=== PATIENT | male | born 1970 | race Caucasian/White ===

== ENCOUNTER 2020-08-06 06:54 | Inpatient (IN) ==
[~2020-08-06 06:54] MED LIST: ACETAMINOPHEN 500 MG TABLET PO SCH; CELECOXIB 200 MG CAPSULE PO SCH; PREGABALIN 75 MG CAPSULE PO SCH; ceFAZolin 3 GM in DEXTROSE 5% IN WATER 50 ML IV SCH; oxyCODONE 10 MG TAB.ER.12H PO SCH
[2020-08-06] MEDS ORDERED: ROPIVACAINE HCL/PF 20 ML VIAL IJ ONE (09:19)
[2020-08-06] MEDS ORDERED: TRANEXAMIC ACID 1,000 MG/10 ML VIAL IV ONE ×2 (09:19→12:28)
[2020-08-06] MEDS ORDERED: HYDROmorphone 1 MG/ML SYRINGE ONE (09:19)
[2020-08-06] MEDS ORDERED: PROPOFOL 200 MG/20 ML VIAL IV ONE (09:19)
[2020-08-06] MEDS ORDERED: DEXAMETHASONE 10 MG/ML VIAL ONE (09:19)
[2020-08-06] MEDS ORDERED: LIDOCAINE HCL/PF 100 MG/5 ML SYRINGE IV ONE (09:19)
[2020-08-06] MEDS ORDERED: fentaNYL 100 MCG/2 ML VIAL IV ONE (09:19)
[2020-08-06] MEDS ORDERED: ONDANSETRON 4 MG/2 ML VIAL ONE (09:19)
[2020-08-06] MEDS ORDERED: KETAMINE 100 MG/ML ML ONE (09:19)
[2020-08-06] MEDS: GENTAMICIN SULFATE 800 MG/20 ML VIAL IR ONE ×2 (09:48→11:10)
[2020-08-06] MEDS ORDERED: TOBRAMYCIN SULFATE 1.2 GM VIAL TOPICAL ONE (11:10)
[2020-08-06] MEDS ORDERED: 0.9 % SODIUM CHLORIDE 9 ML, KETOROLAC 30 MG, ROPIVACAINE HCL/PF 49.5 ML, EPINEPHrine 0.... IJ ONE (11:14)
[2020-08-06] MEDS ORDERED: PROMETHAZINE 25 MG/ML VIAL IV PRN (11:56)
[2020-08-06] MEDS ORDERED: BENZOCAINE/MENTHOL 1 LOZENGE PO PRN ×2 (11:56→12:28)
[2020-08-06] MEDS ORDERED: NALOXONE HCL 0.4 MG/ML VIAL IV PRN (11:56)
[2020-08-06] MEDS ORDERED: ACETAMINOPHEN 1,000 MG/100 ML BAG IV ONE (11:56)
[2020-08-06] MEDS ORDERED: diphenhydrAMINE 50 MG/ML VIAL IV PRN (11:56)
[2020-08-06] MEDS ORDERED: HYDROmorphone 0.5 MG/0.5 ML SYRINGE IV PRN (11:56)
[2020-08-06] MEDS ORDERED: IPRATROPIUM/ALBUTEROL 3 ML AMPUL.NEB NEB PRN (11:56)
[2020-08-06] MEDS ORDERED: ONDANSETRON 4 MG/2 ML VIAL IV PRN ×2 (11:56→12:28)
[2020-08-06] MEDS ORDERED: LACTATED RINGERS 250 ML IV PRN (11:56)
[2020-08-06] MEDS ORDERED: LACTATED RINGERS 1,000 ML IV SCH (12:00)
[2020-08-06] MEDS: fentaNYL 100 MCG/2 ML VIAL IV PRN ×8 (12:20→13:02)
[2020-08-06] MEDS: MEPERIDINE 25 MG/ML SYRINGE IV PRN ×2 (12:24→12:29)
[2020-08-06] MEDS ORDERED: ONDANSETRON 4 MG ODT TABLET SL PRN (12:28)
[2020-08-06] MEDS ORDERED: MAGNESIUM HYDROXIDE 30 ML ORAL.SUSP PO PRN (12:28)
[2020-08-06] MEDS ORDERED: ACETAMINOPHEN 325 MG TABLET PO PRN (12:28)
[2020-08-06] MEDS ORDERED: BISACODYL 10 MG SUPP.RECT PR PRN (12:28)
[2020-08-06] MEDS ORDERED: FLEETS ADULT ENEMA PR PRN (12:28)
[2020-08-06] MEDS ORDERED: POLYETHYLENE GLYCOL 3350 17 GM PACKET PO PRN (12:28)
--- NOTE | 2020-08-06 12:28 | Brief Operative Note ---
Brief Operative Note Date of procedure: 08/06/20 Pre-op diagnosis: Right knee septic Post-op diagnosis: same Procedure: Right tka revision all components Grafts/Implants: Yes Anesthesia: GETA Findings: severe septic knee Complications: none Complications Description: none Surgeon: Brian Mccarthy Manufacturing Design Engineer: Manan Benites Estimated blood loss (cc): 300 Tourniquet Time (Minutes): 100 Specimens Removed/Pathology: other Condition: stable Disposition: PACU
[2020-08-06] MEDS ORDERED: traMADol 50 MG TABLET PO PRN (12:34)
[2020-08-06] MEDS ORDERED: SILDENAFIL 50 MG PO PRN (12:34)
[2020-08-06] MEDS ORDERED: TRANEXAMIC ACID 1,000 MG/10 ML VIAL IV SCH (12:45)
[2020-08-06] MEDS ORDERED: METHOCARBAMOL 1,000 MG/10 ML VIAL ONE (12:53)
[2020-08-06] MEDS ORDERED: VANCOMYCIN 1,500 MG in 0.9 % SODIUM CHLORIDE 500 ML IV ONE (13:00)
[2020-08-06] MEDS: 0.45 % SODIUM CHLORIDE 1,000 ML IV SCH (13:23)
[2020-08-06] MEDS: HYDROcodone/APAP 10/325MG TABLET PO PRN ×3 (13:29→23:42)
[2020-08-06] MEDS: 0.9 % SODIUM CHLORIDE 10 ML SYRINGE IV SCH ×2 (13:50→21:26)
[2020-08-06] MEDS ORDERED: VANCOMYCIN PER PHARMACY IV SCH (14:24)
[2020-08-06] MEDS ORDERED: VANCOMYCIN 500 MG in 0.9 % SODIUM CHLORIDE 100 ML IV ONE (14:30)
--- NOTE | 2020-08-06 14:38 | XRay Report ---
HISTORY: Postop right knee arthroplasty FINDINGS: There is a well positioned total knee prosthesis. There are multiple clusters of soft tissue calcifications along both medial and lateral borders of the femoral tibial joint compartment. There are also soft tissue calcification seen on the lateral view superimposed over the patellofemoral joint. Preoperative x-rays are not available for comparison. There is no fracture. IMPRESSION: Well-positioned knee prosthesis Multiple periarticular soft tissue calcifications Interpreted and Authenticated by: Tahir Benton 08/06/20
[2020-08-06 15:00] LABS: POC Blood Urea Nitrogen 10 mg/dL (6-20); POC CO2 24 mmol/L (22-30); POC Chloride 104 mEq/L (96-108); POC Creatinine 0.7 mg/dL (0.6-1.2); POC Glucose, Random 139 mg/dL (70-105); POC Hematocrit 39 % (41-55); POC Potassium 3.8 mEql/L (3.3-5.1); POC Sodium 141 mEq/L (133-145)
[2020-08-06] MEDS: KETOROLAC 15 MG/ML VIAL IV SCH ×2 (17:24→23:42)
[2020-08-06] MEDS ORDERED: SENNOSIDES 1 TABLET PO SCH (21:00)
[2020-08-06] MEDS ORDERED: ATORVASTATIN 40 MG TABLET PO SCH (21:00)
[2020-08-06] MEDS ORDERED: TEMAZEPAM 15 MG CAPSULE PO PRN (21:00)
[2020-08-06] MEDS: ceFAZolin 1 GM VIAL IV SCH (21:24)
[2020-08-06] MEDS: DOCUSATE SODIUM 100 MG CAPSULE PO SCH (21:25)
[2020-08-06] MEDS: ASPIRIN 81 MG TAB.CHEW PO SCH (21:25)
[2020-08-06] MEDS: VANCOMYCIN 1,500 MG in 0.9 % SODIUM CHLORIDE 500 ML IV SCH (23:43)
[2020-08-07] MEDS: 0.45 % SODIUM CHLORIDE 1,000 ML IV SCH ×2 (01:05→12:27)
[2020-08-07] MEDS: HYDROcodone/APAP 10/325MG TABLET PO PRN ×3 (05:09→13:27)
[2020-08-07] MEDS: ceFAZolin 1 GM VIAL IV SCH ×2 (05:09→12:50)
[2020-08-07] MEDS: KETOROLAC 15 MG/ML VIAL IV SCH (06:35)
[2020-08-07] MEDS: 0.9 % SODIUM CHLORIDE 10 ML SYRINGE IV SCH (06:35)
[2020-08-07] MEDS ORDERED: LEVOTHYROXINE 100 MCG TABLET PO SCH (07:30)
[2020-08-07] MEDS: ASPIRIN 81 MG TAB.CHEW PO SCH (07:38)
[2020-08-07] MEDS: DOCUSATE SODIUM 100 MG CAPSULE PO SCH (07:38)
[2020-08-07] MEDS ORDERED: RIVAROXABAN 10 MG PO SCH (09:00)
[2020-08-07] MEDS: VANCOMYCIN 1,500 MG in 0.9 % SODIUM CHLORIDE 500 ML IV SCH (09:52)
--- NOTE | 2020-08-07 10:54 | Orthopedic Progress Note ---
SUBJECTIVE Subjective Patient information: Note initiated : 08/07/20 at 10:52 am Service Date, if different from initiated Date: [] Patient: Manan Mccurdy 49 y/o M admitted on 08/06/20 for Right Total Knee Revision First Stage Rev Right To. Chief Complaint: [no nausea nor vomiting and only complains of thigh pain] Constitutional Vitals: Vital Signs Temp Pulse Resp BP Pulse Ox 97.5 F 65 18 96/54 97 08/07/20 06:58 08/07/20 06:58 08/07/20 06:58 08/07/20 06:58 08/07/20 07:46 Period Temp Pulse Resp BP Sys/James Pulse Ox Last 24 Hr 96.9 F-98.4 F 65-98 15-19 96-162/54-96 94-100 Intake and Output 08/06/20 08/07/20 08/07/20 21:59 05:59 13:59 Intake Total 1863 500 480 Output Total 775 Balance 1863 -275 480 Weight 347 lb 11.2 oz Intake & Output: Intake & Output 08/06/20 08/07/20 08/07/20 21:59 05:59 13:59 Intake Total 1863 500 480 Output Total 775 Balance 1863 -275 480 Weight 347 lb 11.2 oz Intake: IV 1263 500 Sodium Chloride 0.45% 1,000 ml 663 @ 100 mls/hr IV .Q10H [facility] Rx#: [id number] Vancomycin 500 mg In Sodium 100 Chloride 0.9% 100 ml @ 100 mls/ hr IV ONCE ONE Rx#:[id number] Vancomycin 1,500 mg In Sodium 500 500 Chloride 0.9% 500 ml @ 333.3 mls/hr IV Q12H [facility] Rx#: [id number] Oral 600 480 Output: Void Amount 775 Other: Meal Dinner Breakfast Percent of Meal Consumed 100% 100% Feeding Ability Independent Independent Urine Appearance Clear Clear Urine Color Pale Bright Yellow Urine Odor Normal # Voids 1 1 Head Head exam: Present normal inspection and normocephalic ENT ENT exam: Present mucous membranes moist Extremities Exam Extremities exam: Present calf tenderness, joint swelling, normal capillary refill, Eli's sign (negative) and Foot pink and warm Skin Skin exam: Present intact and warm OBJ DATA Labs CBC & Chem 7: 08/07/20 05:30 Labs: Abnormal Lab Results 08/07/20 08/06/20 05:30 14:40 Hct 32.1 L POC Hct 39 L POC Glucose 139 H POC WB Ioniz Calcium 1.10 L Meds: Medications Acetaminophen (Tylenol) 650 mg PO Q6HP PRN; Protocol PRN Reason: Per Pain Protocol/Fever > 101 Hydrocodone Bitart/Acetaminophen ([place] 10/325mg) 1 - 2 tab PO Q4HP PRN; Protocol PRN Reason: Per Pain Protocol Last Admin: 08/07/20 09:38 Dose: 2 tab Documented by: Aspirin (Aspirin) 81 mg PO BID [facility] Last Admin: 08/07/20 07:38 Dose: 81 mg Documented by: Atorvastatin Calcium (Lipitor) 40 mg PO [id number]@2100 [facility] Last Admin: 08/06/20 21:25 Dose: 40 mg Documented by: Bisacodyl (Dulcolax) 10 mg AL Q2-3DAYS PRN PRN Reason: Constipation Cefazolin Sodium (Ancef) 2 gm IV Q8H [facility]; Protocol Last Admin: 08/07/20 05:09 Dose: 2 gm Documented by: Docusate Sodium (Colace) 100 mg PO BID [facility] Last Admin: 08/07/20 07:38 Dose: 100 mg Documented by: Sodium Chloride (Sodium Chloride 0.45%) 1,000 mls @ 100 mls/hr IV .Q10H [facility] Last Admin: 08/07/20 01:05 Dose: Not Given Documented by: Vancomycin HCl 1,500 mg/ (Sodium Chloride) 500 mls @ 333.3 mls/hr IV Q12H [facility] Last Admin: 08/07/20 09:52 Dose: 333.3 mls/hr Documented by: Ketorolac Tromethamine (Toradol) 15 mg IV Q6 [facility] Stop: 08/08/20 12:01 Last Admin: 08/07/20 06:35 Dose: 15 mg Documented by: Levothyroxine Sodium (Synthroid) 100 mcg PO ACB [facility] Last Admin: 08/07/20 07:38 Dose: 100 mcg Documented by: Magnesium Hydroxide (Milk Of Magnesia) 30 ml PO BIDP PRN PRN Reason: Constipation Ondansetron HCl (Zofran) 4 mg IV Q4HP PRN PRN Reason: Nausea And Vomiting Ondansetron HCl (Zofran Odt) 4 mg SL Q4HP PRN PRN Reason: Nausea And Vomiting Polyethylene Glycol (Miralax) 17 gm PO DAILYP PRN PRN Reason: Constipation Senna (Senokot) 2 tab PO HS [facility] Last Admin: 08/06/20 21:25 Dose: 2 tab Documented by: Sodium Biphosphate/Sodium Phosphate (Fleets Adult) 1 dose AL Q3-4DAYS PRN PRN Reason: Constipation Sodium Chloride (Saline Flush) 10 ml IV Q8 [facility] Last Admin: 08/07/20 06:35 Dose: 10 ml Documented by: Temazepam (Restoril) 15 mg PO HSP PRN PRN Reason: Insomnia Throat Lozenges (Cepacol) 1 lozenge PO PRN PRN PRN Reason: Sore Throat Tramadol HCl (Ultram) 50 mg PO QIDP PRN; Protocol PRN Reason: Pain Vancomycin HCl (Vancomycin Per Pharmacy) 1 order IV UD [facility]; Protocol A/P Time Spent With Patient Time: Total time spent is greater than 50% in coordination of care (as marco antonio erazo) at patient's floor/unit and/or counseling patient:
--- NOTE | 2020-08-07 14:39 | XRay Report ---
HISTORY: PICC line insertion FINDINGS: A PICC line has been inserted through the left arm with the tip in the superior vena cava. There is no pneumothorax, pleural effusion or widening of the mediastinum. The lungs are clear. The heart size is normal. IMPRESSION: Normal chest following insertion of a left-sided PICC line Surgical nursing was called with the results Interpreted and Authenticated by: Tahir Benton 08/07/20
--- NOTE | 2020-08-09 08:56 | Operative Note ---
DATE OF OPERATION: 08/06/2020 PREOPERATIVE DIAGNOSIS: Right septic knee, longstanding. POSTOPERATIVE DIAGNOSIS: Right septic knee, longstanding. PROCEDURE: Right total knee arthroplasty revision of all components. SURGEON: Brian Mccarthy M.D. GLOBAL CMO: Donnell Benites PA-C. The PA's assistance was required for the safe and efficient completion of the entire case. This provider's expertise and technical skill were required throughout the case. The PA assisted with preoperative coordination, intraoperative retraction, wound closure, dressing and splint application, as well as postoperative documentation and care coordination. ANESTHESIA: General LMA anesthesia. COMPLICATIONS: None. TOURNIQUET TIME: 100 minutes. ESTIMATED BLOOD LOSS: 300 mL. BLOOD PRODUCTS GIVEN: None. DESCRIPTION OF PROCEDURE: The patient was brought to the operating room, put to sleep with general LMA anesthesia. Once asleep, the patient had the right leg sterilely prepped and draped in the usual sterile fashion. Once this was done, the leg was exsanguinated and tourniquet inflated to 300 pounds of pressure. Incision through the prior incision was made. The lateral capsule had been released which was quite amazing. This allowed a lot of infection to escape. There had been a prior somewhat of a repair. We then incised through the medial capsule with a midvastus approach, removing all the implants. This included the femoral component, the tibial component, the poly liner, as well as the patellar component. Excess cement was removed. We recut the tibia to realign the implant. We externally rotated the tibial baseplate, size 7 tibia, size 7 femur, a 19 mm poly insert. We irrigated thoroughly and then resurfaced the patella with a 39 mm patella after removing the old component. We irrigated once more. We cemented into place the 7 tibia, the 7 femur, the 19 mm poly insert. Excess cement was removed. We then placed a 39 mm patellar button. We deflated the tourniquet at 100 minutes. We then used tranexamic acid, both IV and within the wound to control any bleeding. Once this was done, we then closed the midvastus approach with #1 Stratafix x4. We closed the lateral capsule that had been released. We closed the medial midvastus approach. We took the knee through range of motion once all closed. This seemed to fit very well. We closed the skin with 2-0 Monocryl and then annamarie. Sterile bandage was applied. The patient tolerated this well without complication. RBH:huy Job ID: [id number] Doc ID: [id number] Brian Mccarthy MD
--- NOTE | 2020-08-09 09:28 | Operative Note ---
DATE OF OPERATION: 08/06/2020 PREOPERATIVE DIAGNOSIS: Total knee arthroplasty by Dr. Tran. This has been operated on now five times without resolution. POSTOPERATIVE DIAGNOSIS: Total knee arthroplasty by Dr. Tran. This has been operated on now five times without resolution. PROCEDURE: Septic knee revision of all components using Michael components. SURGEON: Brian Mccarthy M.D. PATHOLOGIST: Donnell Benites PA-C. The PA's assistance was required for the safe and efficient completion of the entire case. This provider's expertise and technical skill were required throughout the case. The PA assisted with preoperative coordination, intraoperative retraction, wound closure, dressing and splint application, as well as postoperative documentation and care coordination. ANESTHESIA: General LMA anesthesia. ESTIMATED BLOOD LOSS: 300 mL. TOURNIQUET TIME: Tourniquet pressure at 300 pounds of pressure for 100 minutes. MEDICATIONS: Antibiotic-impregnated cement was used with tobramycin, as well as tranexamic acid and preoperative antibiotics. Cultures were sent. DESCRIPTION OF PROCEDURE: The patient was brought to the operating room, put to sleep with general LMA anesthesia. Once asleep, the patient had the right leg sterilely prepped and draped in the usual sterile fashion. A timeout was performed confirming this as the operative site by initials, consent form, and x-rays. A midline incision was made. There was a large infection that was expressed through the lateral release site where the patient had a lateral release. This was debrided. We then made a midvastus approach to the knee and exposed the joint. All the components were removed. Both the femoral, tibia, the tibial baseplate, and the poly on the patella were all removed. Once this was done, excess cement was removed. We then recut the tibia to length and then we irrigated thoroughly. Once done, we were able to then place a size 7 tibial baseplate, setting greater external rotation. The femoral component was a size 7 and a 19 mm poly insert was placed. Excess cement was removed. We resurfaced the patella with a 39 mm patellar button after removing the old patella. All these were cemented into place with tobramycin-impregnated cement, 1 gram. Patient tolerated this well. We irrigated thoroughly and then we deflated the tourniquet. Blood loss was about 300 mL. Tranexamic acid was then locally placed within the joint. IV form of tranexamic acid and preoperative antibiotics had been given. We closed the midvastus approach with #1 Stratafix x4. This included the lateral release site from a prior surgery that was closed. We closed the skin with Stratafix, Monocryl and annamarie. The patient tolerated this well. Sterile bandage was applied. RBH:huy Job ID: [id number] Doc ID: [id number] Brian Mccarthy MD
--- NOTE | 2020-08-09 14:42 | Discharge Summary ---
Discharge Provider Provider Patient information: Note initiated : 08/09/20 at 2:37 pm Service Date, if different from initiated Date: [] Patient: Manan Mccurdy 49 y/o M admitted on 08/06/20 for Right Total Knee Revision First Stage Rev Right To. Chief Complaint: Right tka revision for infection[] Date of admission: 08/06/20 06:54 Discharge date: 08/07/20 Primary care physician: Harry Mattson MD COURSE Hospital Course Hospital course: uncomplicated Discharge diagnosis: septic right knee Time Spent with Patient Time attestation: Total time spent providing and/or coordinating discharge services: Time spent: Greater than 30 minutes Physical Examination Exam Incision healing: Yes Incision draining: No Incision red: No Incision swollen: Yes Incision inflamed: No Clean and dry: Yes Weight bearing status: full Range of motion: 0-65 Discharge Instructions - TKA Patient Instructions Total Knee Protocol: For Total Knee: Start ROM CARMEN with stationary bike or rocking chair. Work on gaining full extension of knee. Posterior dislocation precautions provided. Hip abductor strengthening and gait training instructions provided. Apply Cryocuff as instructed. Discharge Plan Patient/Caregiver Discharge Instructions Activity: ambulate only with your walker Diet: Regular Diet Instructions: Hydrocodone/Acetaminophen (By mouth), Cefazolin (By injection), Vancomycin (By mouth), How to Care for Your PICC (Peripherally Inserted Central Catheter) (DC), Revision Total Joint Arthroplasty (DC) Activity Restrictions/Additional Instructions: Resume home diet as tolerated Activity as tolerated and as per physical therapy Follow up as needed with Harry Mattson. Contact him at [phone] Follow up with [facility]. Contact the office on Wednesday 08/09 to schedule. [phone] Return to [facility] twice daily for antibiotic infusions at 9:00 am and 9:00 pm. First outpatient dose is 1/2 at 9:00 pm Check in tonight at the admissions department Your will have outpatient vancomycin and cefazolin at 9:00 am and 9:00 pm. Your will continue to administer your midday dose daily at 3:00 pm. Take all medication as directed. Your prescriptions are with your discharge paperwork. 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 Pain medication can cause constipation; take an over the counter stool softener and/or laxative while on pain medication Return to ER for fever, chills, uncontrolled pain, unable to go to the bathroom, nausea and/or vomiting, swelling, redness, signs of infection, shortness of breath, chest pain, return of symptoms, or other acute symptom This discharge packet is provided to you to help keep you informed about your care. We want to ensure you get everything you need when you go home. You will also be receiving a call from us in a few days to follow up with you and see how you are doing since your discharge. This gives us a chance to listen to any concerns you maybe experiencing since you were discharged or any additional needs you may have, as well as providing us feedback on your care experience. We strive to always provide excellent care and thank you for your feedback and for choosing [facility]. Prescriptions: New cefazolin 1 gram Recon Soln 2 g IV Q8H 30 Days RF: 0 hydrocodone-acetaminophen 10-325 mg Tablet 1 - 2 tab PO Q4HP PRN (Reason: Per Pain Protocol) Qty: 60 RF: 0 Vancomycin Per Pharmacy 2 g .Route BID Qty: 60 RF: 1 sodium chloride 0.9 % (flush) [BD Pre-Filled Normal Saline] Syringe 10 ml IV QDAY Qty: 60 RF: 0 Continued tramadol 50 mg tablet 50 mg PO QIDP PRN (Reason: Pain) RF: 0 levothyroxine [Synthroid] 100 mcg tablet 100 mcg PO QDAY RF: 0 sildenafil 50 mg Tablet 50 mg PO QDAY PRN (Reason: Erectile Dysfunction) RF: 0 ezetimibe 10 mg Tablet 10 mg PO QDAY RF: 0 rosuvastatin 20 mg Tablet 20 mg PO 3XW RF: 0 Discontinued Xarelto 10 mg tablet 10 mg PO QDAY RF: 0 hydrocodone-acetaminophen 5-325 mg Tablet 1 tab PO Q4H PRN (Reason: Pain) RF: 0 Follow Up Plan Follow up with: Brian Mccarthy MD [Physician] - Harry Mattson MD [Primary Care Provider] - Patient Disposition: Home, Self-Care Care Plan Goals: cure knee infection Hospital Course: uncomplicated Health Concerns: infection Assessment: dc home Plan of Treatment: home iv antibiotics Prognosis: Good Rehab Potential: Good I certify that the patient requires SNF services: No Overall status at discharge: patient is back to baseline Discharge Date/Time: 08/07/20 13:55 Discharge Orders: Discharge Order (Routine); Ordered 08/07/20 Ordered By: Brian Mccarthy Pending Pending Pending: Diet Regular Diet Start SunAug 06 Lunch Shift Summary 08/07/20 04:02 Shift Summary by Elyssa Rosenbaum Patient alert and oriented x4. Slept off and on this shift. Medicated with Hydrocodone 2 tabsx2 for right knee pain 7/10 with moderate effect. IV on right hand saline locked. Up using FWW, gait belt and standby assist. Ambulated in hallway 300 ft. Voids to the bathroom. Used the CPM machine 0-40 degrees for 3 hours. For PICC line today 0900-0930H. For 6 weeks of IV ABOs. On Zosyn and Vancomycin. Also given scheduled Toradol this shift. Right knee dressing CDI. CMS intact. Ice pack applied. VSS. Initialized on 08/07/20 04:02 - END OF NOTE
== END 2020-08-07 13:55 | disposition home or self-care (01) | DRG 467 ==
LOC: MEDSUR 06:54
PROVIDERS: ADMIT Orthopaedic Surgery; ATTEND Orthopaedic Surgery

== ENCOUNTER 2024-09-29 05:30 | Inpatient (IN) ==
[2024-09-10 10:00] LABS: Basophils # (Auto) 0.03 K/mcL (0.00-0.30); Basophils % (Auto) 0.3 % (0.0-2.0); Eosinophils # (Auto) 0.09 K/mcL (0.00-0.70); Eosinophils % (Auto) 0.8 % (0.0-7.0); Hematocrit 44.9 % (40.1-51.0); Hemoglobin 15.2 g/dL (13.7-17.5); Lymphocytes # (Auto) 1.01 K/mcL (1.50-4.80); Lymphocytes % (Auto) 8.8 % (15.5-49.0); Mean Cell Volume 93.2 fL (80.0-100.0); Mean Corpuscular HGB Conc 33.9 g/dL (31.0-36.0); Mean Platelet Volume 9.2 fL (8.8-12.5); Monocytes # (Auto) 0.74 K/mcL (0.10-0.90); Monocytes % (Auto) 6.4 % (1.0-12.0); Neutrophils % (Auto) 83.5 % (38.0-78.0); Platelet Count 201 K/mcL (140-440); RBC 4.82 M/mcL (4.63-6.08); Red Cell Distribution Width 12.5 % (11.5-14.5); WBC 11.5 K/mcL (4.5-11.0)
[2024-09-10 10:12] LABS: Appearance,Urine Clear (Clear); Bacteria,Urine 0 /hpf (0); Bilirubin,Urine Negative (Negative); Color,Urine Yellow; Glucose,Urine (UA) Negative (Negative); Ketones,Urine Negative (Negative); Leukocyte Esterase,Urine Negative /uL (Negative); Mucus,Urine Few /hpf; Nitrate,Urine Negative (Negative); PH,Urine 5.5 (5.0-9.0); Protein,Urine Negative (Negative); Urine Blood Moderate ery/mcL (Negative); Urine RBC 12 /hpf (0-3); Urine Squamous Epithelial Cell < 1 /hpf (0-4); Urine Transitional Epi Cells < 1 /hpf (0-2); Urine WBC < 1 /hpf (0-4); Urobilinogen,Urine Normal
[2024-09-10 10:27] LABS: INR 1.7 (0.9-1.1); Prothrombin Time 20.6 sec (11.9-14.5)
[2024-09-10 10:33] LABS: ALT/SGPT 25 U/L (<40); AST/SGOT 39 U/L (<40); Albumin 4.2 gm/dL (3.2-5.2); Albumin/Globulin Ratio 1.3 (1.0-2.3); Alkaline Phosphatase 53 U/L (39-117); Bilirubin,Total 0.5 mg/dL (0.1-1.0); Blood Urea Nitrogen 11 mg/dL (6-20); Calcium 9.1 mg/dL (8.6-10.4); Carbon Dioxide 22 mmol/L (22-30); Chloride 105 mmol/L (96-108); Globulin 3.2 gm/dL (2.2-3.7); Glomerular Filtration Rate 102; Glucose 114 mg/dL (70-105); Potassium 3.9 mmol/L (3.3-5.1); Sodium 139 mmol/L (133-145)
[2024-09-10 11:28] LABS: Estimated Average Glucose(eAG) 108 mg/dL; Hemoglobin A1C 5.4 % Hgb (4.0-6.0)
[2024-09-29] MEDS: oxyCODONE 10 MG TAB.ER.12H PO SCH (07:24)
[2024-09-29] MEDS: ACETAMINOPHEN 500 MG TABLET PO SCH (07:25)
[2024-09-29] MEDS: CELECOXIB 200 MG CAPSULE PO SCH (07:25)
[2024-09-29] MEDS: PREGABALIN 75 MG CAPSULE PO SCH (07:25)
[2024-09-29] MEDS ORDERED: ONDANSETRON 4 MG/2 ML VIAL ONE (07:31)
[2024-09-29] MEDS ORDERED: PHENYLephrine 1 MG/10 ML SYRINGE (ANEST) ONE (07:31)
[2024-09-29] MEDS ORDERED: GLYCOPYRROLATE 0.2 MG/ML VIAL IV ONE (07:31)
[2024-09-29] MEDS ORDERED: LIDOCAINE 2% PF 5 ML VIAL ONE (07:31)
[2024-09-29] MEDS ORDERED: METOCLOPRAMIDE 10 MG/2 ML VIAL ONE (07:31)
[2024-09-29] MEDS ORDERED: ePHEDrine 50 MG/ML AMPUL IV ONE (07:31)
[2024-09-29] MEDS ORDERED: DEXAMETHASONE 10 MG/ML VIAL ONE (07:31)
[2024-09-29] MEDS ORDERED: TRANEXAMIC ACID 1,000 MG/10 ML VIAL ONE (07:31)
[2024-09-29] MEDS ORDERED: BUPIVACAINE PF 0.5% 10 ML VIAL ONE (07:32)
[2024-09-29] MEDS ORDERED: ROPIVACAINE HCL/PF 30 ML VIAL IJ ONE (07:32)
[2024-09-29] MEDS ORDERED: FAMOTIDINE/PF 20 MG/2 ML VIAL IV ONE (07:33)
[2024-09-29] MEDS ORDERED: PROPOFOL 200 MG/20 ML VIAL IV ONE (07:33)
[2024-09-29] MEDS ORDERED: KETAMINE 50 MG/ML ML ONE (07:34)
[2024-09-29] MEDS ORDERED: MIDAZOLAM 2 MG/2 ML VIAL ONE (07:38)
[2024-09-29] MEDS: ceFAZolin 3 GM in DEXTROSE 5% IN WATER 50 ML IV SCH (08:14)
[2024-09-29] MEDS: 0.9 % SODIUM CHLORIDE 9 ML, KETOROLAC 30 MG, ROPIVACAINE HCL/PF 49.5 ML, EPINEPHrine 0.... IJ SCH (08:44)
[2024-09-29] MEDS ORDERED: ONDANSETRON 4 MG/2 ML VIAL IV PRN (08:56)
[2024-09-29] MEDS ORDERED: fentaNYL 100 MCG/2 ML VIAL IV PRN (08:56)
[2024-09-29] MEDS ORDERED: HYDROmorphone 0.5 MG/0.5 ML SYRINGE IV PRN (08:56)
[2024-09-29] MEDS ORDERED: IPRATROPIUM/ALBUTEROL 3 ML AMPUL.NEB NEB PRN (08:56)
[2024-09-29] MEDS ORDERED: DROPERIDOL 5 MG/2 ML VIAL IV PRN (08:56)
[2024-09-29] MEDS ORDERED: ACETAMINOPHEN 325 MG TABLET PO PRN (09:29)
[2024-09-29] MEDS ORDERED: POLYETHYLENE GLYCOL 3350 17 GM PACKET PO PRN (09:29)
[2024-09-29] MEDS ORDERED: HYDROcodone/APAP 10/325MG TABLET PO PRN (09:33)
[2024-09-29] MEDS ORDERED: [UNRECOGNIZED DRUG - OTHER] SUB-Q SCH (09:45)
[2024-09-29] MEDS ORDERED: METHOTREXATE SODIUM 2.5 MG TABLET PO SCH (09:45)
[2024-09-29] MEDS ORDERED: SEMAGLUTIDE SUB-Q SCH (09:45)
[2024-09-29] MEDS: TRANEXAMIC ACID 1,000 MG/10 ML VIAL IV SCH (10:04)
[2024-09-29] MEDS: 0.45 % SODIUM CHLORIDE 1,000 ML IV SCH (10:50)
[2024-09-29] MEDS: ATORVASTATIN 40 MG TABLET PO SCH (11:56)
[2024-09-29] MEDS: LACTATED RINGERS 1,000 ML IV SCH (12:30)
[2024-09-29] MEDS: KETOROLAC 15 MG/ML VIAL IV SCH (12:49)
[2024-09-29] MEDS: HYDROmorphone 1 MG/ML SYRINGE IV PRN (14:10)
[2024-09-29] MEDS: oxyCODONE/APAP 5/325MG TABLET PO PRN (16:37)
[2024-09-29] MEDS: ceFAZolin 1 GM VIAL IV SCH (17:02)
[2024-09-29] MEDS: 0.9 % SODIUM CHLORIDE 10 ML SYRINGE IV SCH (17:03)
[2024-09-29] MEDS: SENNOSIDES 1 TABLET PO SCH (20:56)
[2024-09-29] MEDS: ASPIRIN 81 MG TAB.CHEW PO SCH (20:56)
[2024-09-30] MEDS: OMEPRAZOLE 20 MG CAPSULE PO SCH (07:59)
[2024-09-30] MEDS: LEVOTHYROXINE 100 MCG TABLET PO SCH (07:59)
[2024-09-30 08:43] VITALS: TEMP 97.4; O2SAT 97
[2024-09-30] MEDS: EZETIMIBE 10 MG TABLET PO SCH (08:56)
[2024-09-30] MEDS: ERGOCALCIFEROL (VITAMIN D2) 50,000 UNIT CAPSULE PO SCH (08:57)
[2024-09-30] MEDS: FERROUS SULFATE 325 MG TABLET PO SCH (08:57)
[2024-09-30] MEDS ORDERED: RIVAROXABAN 10 MG PO SCH (09:00)
[2024-10-13] MEDS ORDERED: ADALIMUMAB 40 MG/0.8 ML SUB-Q SCH (09:00)
== END 2024-09-30 10:50 | disposition home or self-care (01) | DRG 467 ==
LOC: MEDSUR 05:30 → EDSTATUS 11:45
PROVIDERS: ADMIT Orthopaedic Surgery; ATTEND Orthopaedic Surgery